=== PATIENT | female | born 1965 | race Caucasian/White ===

== ENCOUNTER 2024-10-09 15:13 | Emergency (ER) | payer OTHER, BC ==
[2024-10-09] MEDS ORDERED: DUONEB 0.5-3 MG/3 ml Neb IH ONE (15:34)
[2024-10-09] MEDS: DUONEB 0.5-3 MG/3 ml Neb IH ONE (15:36)
[2024-10-09 15:45] VITALS: TEMP 97.1
[2024-10-09] MEDS ORDERED: Sterile H2O 10 ml IJ ONE (15:46)
[2024-10-09] MEDS ORDERED: solu-MEDROL ONE (15:46)
--- NOTE | 2024-10-09 15:51 | ERPHSYRPT ---
- History of Present Illness Time Seen by Provider: 10/09/24 15:16 Source: patient Exam Limitations: no limitations Patient Subjective Stated Complaint: shortness of breath COPD Exacerbation Triage Nursing Assessment: patient is alert and oriented, pale, difficulty breathing, has had trouble breathing doctor put her on augmentin and prednison, but she's still getting worse. no edema noted lung sounds course. pulses equal bilateral radius Physician History: 59 years old female with history of tobacco use, COPD with chronic respiratory failure but uses oxygen only at nighttime as needed presented in the ER with 1 week history of increasing shortness of breath and wheezing despite using her inhaler and nebulizer. Patient was seen outpatient and taking Augmentin/prednisone with no significant relief and it seems like it is actually getting worse. Patient denies any fever or chills. She has been using oxygen during the daytime as well but still feels short of breath. Patient has a saturation of 88% on presentation and in the ER on room air, placed on 3 L oxygen and improved in mid 90s. Patient denies any history of coronary artery disease, PE/DVTs. Reports having similar symptoms multiple times with COPD flareup. Allergies/Adverse Reactions: No Known Drug Allergies Allergy (Verified 10/09/24 15:52) Hx Tetanus, Diphtheria Vaccination/Date Given: Yes Hx Influenza Vaccination/Date Given: Yes Hx Pneumococcal Vaccination/Date Given: No Immunizations Up to Date: Yes Travel Risk - International Travel Have you traveled outside of the country in past 3 weeks: No - Emerging Infectious Disease Are you exhibiting symptoms associated with any current EIDs: No - Review of Systems Constitutional: Fatigue Eyes: No Symptoms Ears, Nose, & Throat: No Symptoms Respiratory: Cough, Dyspnea, Dyspnea on Exertion (ARANDA), Wheezing Cardiac: No Symptoms Abdominal/Gastrointestinal: No Symptoms Genitourinary Symptoms: No Symptoms Musculoskeletal: No Symptoms Skin: No Symptoms Neurological: No Symptoms Endocrine: No Symptoms Hematologic/Lymphatic: No Symptoms Immunological/Allergic: No Symptoms - Past Medical History Pertinent Past Medical History: Yes Cardiac History: No Pertinent History Respiratory History: COPD Musculoskeletal History: No Pertinent History GI Medical History: No Pertinent History History: No Pertinent History Psycho-Social History: No Pertinent History Female Reproductive Disorders: No Pertinent History - Past Surgical History Past Surgical History: Yes Gastrointestinal: Cholecystectomy Musculoskeletal: Other Female Surgical History: Hysterectomy Other Surgical History: carpel tunnel - Social History Smoking Status: Current every day smoker Drug Use: none - Social Determinants of Health Will the patient participate in the screening: Yes Do you worry about a steady place to live?: Yes Do you have any problems with any of the following?: No known problems In the past 12 months,have you had to go without utilities?: No Transportation Issues: No Has anyone in your support network made you feel unsafe?: No Have you or anyone in your house had to go w/o enough food: No - Nursing Vital Signs Nursing Vital Signs: Initial Vital Signs Temperature 97.1 F 10/09/24 15:31 Pulse Rate 109 H 10/09/24 15:31 Respiratory Rate 26 H 10/09/24 15:31 Blood Pressure 194/74 10/09/24 15:31 O2 Sat by Pulse Oximetry 99 10/09/24 15:31 Pain Scale Pain Intensity 0 - Physical Exam General Appearance: mild distress, alert Eye Exam: PERRL/EOMI Ears, Nose, Throat Exam: hearing grossly normal, normal ENT inspection Neck Exam: normal inspection, non-tender, supple, full range of motion Respiratory Exam: diminished breath sounds, accessory muscle use, wheezing Cardiovascular/Chest Exam: normal heart sounds, tachycardia Abdominal/Gastrointestinal Exam: soft, normal bowel sounds, No tenderness Extremity Exam: non-tender, normal range of motion Neurologic Exam: alert, oriented x 3, cooperative, video games storywriter II-XII nml as tested Skin Exam: normal color SpO2 Interpretation: hypoxic SpO2: 88 O2 Delivery: Nasal Cannula (3 L) - Course EKG Interpreted by Me: RATE ([id number]), Sinus Tach, Left [place] Deviation, Non-specific ST Changes Ordered Tests: Active Orders 24 hr Category Date Time Status Design Tech STAT Care 10/09/24 15:38 Completed EKG-ER Only STAT Care 10/09/24 15:38 Completed IV Insertion STAT Care 10/09/24 15:38 Completed Oxygen-ED Only Nasal Cannula 3 lpm Care 10/09/24 15:38 Completed CHEST 1 VIEW (PORTABLE) Stat Exams 10/09/24 15:38 Completed BLOOD CULTURE Stat Lab 10/09/24 16:32 Received CBC W DIFF Stat Lab 10/09/24 16:30 Completed CMP Stat Lab 10/09/24 16:30 Completed Lactic Acid Stat Lab 10/09/24 16:02 Completed MAGNESIUM Stat Lab 10/09/24 16:30 Completed NT PRO BNPII Stat Lab 10/09/24 16:30 Completed TROPONIN Q4H Lab 10/09/24 16:30 Completed Medication Summary Discontinued Medications Generic Name Dose Route Start Last Admin Trade Name Karlee PRN Reason Stop Dose Admin Albuterol/Ipratropium 3 ml 10/09/24 15:35 10/09/24 15:36 Ipratropium/Albuterol Sulfate 3 Ml Ampul.Neb IH 10/09/24 15:36 3 ml STAT ONE Administration Albuterol/Ipratropium Confirm 10/09/24 15:34 Ipratropium/Albuterol Sulfate 3 Ml Ampul.Neb Administered 10/09/24 15:35 Dose 3 ml IH .STK-MED ONE Methylprednisolone Sodium 0 mg 10/09/24 15:38 10/09/24 15:52 Succinate 125 mg/ Sterile IV 10/09/24 15:39 125 mg Water 2 ml STAT ONE Administration Ceftriaxone Sodium 2 gm in 100 mls @ 200 mls/hr 10/09/24 17:13 10/09/24 17:51 Rocephin 2 Gm/100 Ml Nacl IV 10/09/24 17:42 Infused STAT ONE Infusion Ceftriaxone Sodium Confirm 10/09/24 17:17 Rocephin 2 Gm/100 Ml Nacl Administered 10/09/24 17:18 Dose 2 gm in 100 mls @ ud IV .STK-MED ONE Methylprednisolone Sodium Succinate Confirm 10/09/24 15:46 Methylprednis Sod Succ 125 Mg/2 Ml Vial Administered 10/09/24 15:47 Dose 125 mg .ROUTE .STK-MED ONE Sterile Water Confirm 10/09/24 15:46 Water For Injection,Sterile 10 Ml Vial Administered 10/09/24 15:47 Dose 10 ml IJ .STK-MED ONE Lab/Rad Data: Laboratory Result Diagrams 10/09/24 16:30 10/09/24 16:30 Laboratory Results 10/09/24 10/09/24 10/09/24 Range/Units 16:30 16:30 16:30 WBC 12.3 H (3.98-10.04) x10^3/uL RBC 5.40 H (3.93-5.22) x10^6/uL Hgb 14.8 (11.2-15.7) g/dL Hct 46.7 H (34.1-44.9) % MCV 86.5 (79.4-94.8) fL MCH 27.4 (25.6-32.2) pg MCHC 31.7 L (32.2-35.5) g/dL RDW 13.9 (11.7-14.4) % Plt Count 376 H (182-369) x10^3/uL MPV 9.2 L (9.4-12.3) fL Gran % 80.2 H (34.0-71.1) % Immature Gran % (Auto) 0.7 H (0.001-0.429) % Nucleat RBC Rel Count 0.0 (0.00-0.2) % Eos # (Auto) 0.01 L (0.04-0.36) x10^3/uL Immature Gran # (Auto) 0.09 H (0.001-0.031) x10^3u/L Absolute Lymphs (auto) 1.20 (1.18-3.74) x10^3/uL Absolute Monos (auto) 1.04 H (0.24-0.86) x10^3/uL Absolute Nucleated RBC 0.00 (0.00-0.012) x10^3u/L Lymphocytes % 9.8 L (19.3-51.7) % Monocytes % 8.5 (4.7-12.5) % Eosinophils % 0.1 L (0.7-5.8) % Basophils % 0.7 (0.1-1.2) % Absolute Granulocytes 9.87 H (1.56-6.13) x10^3/uL Basophils # 0.09 H (0.01-0.08) x10^3/uL Sodium 139 (135-145) mmol/L Potassium 3.7 (3.5-5.1) mmol/L Chloride 94 L (98-107) mmol/L Carbon Dioxide 36 H (22-30) mmol/L Anion Gap 13.6 (5-15) MEQ/L BUN 18 H (7-17) mg/dL Creatinine 0.83 (0.52-1.04) mg/dL Estimated GFR 80.7 ML/MIN Glucose 113 H (74-106) mg/dL Lactic Acid (0.4-2.0) Calcium 9.2 (8.4-10.2) mg/dL Magnesium 2.3 (1.6-2.3) mg/dL Total Bilirubin 0.40 (0.2-1.3) mg/dL AST 29 (14-36) U/L ALT 24 (0-35) U/L Alkaline Phosphatase 68 (38-126) U/L Troponin I < 0.012 (0.000-0.033) ng/mL NT-Pro-B Natriuret Pep 74.8 (<300) pg/mL Serum Total Protein 7.2 (6.3-8.2) g/dL Albumin 4.5 (3.5-5.0) g/dL 10/09/24 Range/Units 16:02 WBC (3.98-10.04) x10^3/uL RBC (3.93-5.22) x10^6/uL Hgb (11.2-15.7) g/dL Hct (34.1-44.9) % MCV (79.4-94.8) fL MCH (25.6-32.2) pg MCHC (32.2-35.5) g/dL RDW (11.7-14.4) % Plt Count (182-369) x10^3/uL MPV (9.4-12.3) fL Gran % (34.0-71.1) % Immature Gran % (Auto) (0.001-0.429) % Nucleat RBC Rel Count (0.00-0.2) % Eos # (Auto) (0.04-0.36) x10^3/uL Immature Gran # (Auto) (0.001-0.031) x10^3u/L Absolute Lymphs (auto) (1.18-3.74) x10^3/uL Absolute Monos (auto) (0.24-0.86) x10^3/uL Absolute Nucleated RBC (0.00-0.012) x10^3u/L Lymphocytes % (19.3-51.7) % Monocytes % (4.7-12.5) % Eosinophils % (0.7-5.8) % Basophils % (0.1-1.2) % Absolute Granulocytes (1.56-6.13) x10^3/uL Basophils # (0.01-0.08) x10^3/uL Sodium (135-145) mmol/L Potassium (3.5-5.1) mmol/L Chloride (98-107) mmol/L Carbon Dioxide (22-30) mmol/L Anion Gap (5-15) MEQ/L BUN (7-17) mg/dL Creatinine (0.52-1.04) mg/dL Estimated GFR ML/MIN Glucose (74-106) mg/dL Lactic Acid 1.0 (0.4-2.0) Calcium (8.4-10.2) mg/dL Magnesium (1.6-2.3) mg/dL Total Bilirubin (0.2-1.3) mg/dL AST (14-36) U/L ALT (0-35) U/L Alkaline Phosphatase (38-126) U/L Troponin I (0.000-0.033) ng/mL NT-Pro-B Natriuret Pep (<300) pg/mL Serum Total Protein (6.3-8.2) g/dL Albumin (3.5-5.0) g/dL - Progress Progress: improved, re-examined Air Movement: good Progress Note: 10/09/24 17:26 59 years old is evaluated in the ER for increasing shortness of breath and wheezing despite taking Augmentin and steroids/neb treatments. Patient was in mild distress on presentation, she was mildly hypoxic 88% on room air, initially placed on 3 L and gradually weaned down to 2 L and saturation in low to mid 90s. She is given neb treatment along with Solu-Medrol, feeling better on reevaluation. Chest x-ray did not show any new cardiopulmonary findings but chronic changes of COPD interpreted by me followed by official read. Has normal white count, chemistries fairly unremarkable with negative troponins. EKG showed sinus tach with no ST elevation. Patient tachycardia is also improved on reevaluation. Patient is offered/recommended observation admission for COPD exacerbation but she does not want to stay in the hospital at all. Patient states "there is absolutely no way for me to stay in the hospital as I have to take care of dogs, will come back if does not feel better tomorrow.". She is not confused or altered at all. She has oxygen at home which she is advised to use all the time until her acute phase is over and take frequent neb treatments. Patient blood pressure right before discharge is in 150s and heart rate in 90s. I have given her a dose of Rocephin here and will continue with Levaquin to go home for better and broader coverage. Discussed signs symptoms of worsening needing return to ER which she seems understanding. Patient agrees that if she is worsening will come back but otherwise she would follow-up with PCP and 2 days. Complexity of problems addressed: High acuity Complexity of data reviewed/analyzed: Moderate Risk of complication: Moderate Counseled pt/family regarding: lab results, diagnosis, need for follow-up, rad results, smoking cessation Medical Desision Making - Diagnostic Testing Diagnostic test were ordered, analyzed, and reviewed by me: Yes Radiological Interpretation: Interpreted by me, Reviewed by me - Risk of complications The pt has a mod risk of morbidity or mortality based on: Need for prescription drug management The pt has a high risk of morbidity or mortality based on: Decision regarding hospitilization or escalation of hosp level of care - Departure Departure Disposition: Home Clinical Impression: COPD with acute exacerbation, Respiratory failure Condition: Stable Critical Care Time: No Referrals: RAYMOND GONZALEZ NP [Primary Care Provider, [facility]] - Follow up with PCP 1 day Instructions: Chronic Obstructive Pulmonary Disease Additional Instructions: continue using oxygen 2-3L as recommended, use nebulaizer every 4-6hrs , follow up with PCP for reevaluation, return for worsening of Shortness of breath/wheezing or if having any fever or chills Prescriptions: Levofloxacin [Levaquin 500 MG Tablet] 500 mg PO DAILY #7 tablet Methylprednisolone Packet [Medrol Dosepack] 4 mg PO UD #1 packet
[2024-10-09] MEDS: solu-MEDROL 125 MG, Sterile H2O 10 ml 2 ML IV ONE (15:52)
[2024-10-09 16:44] LABS: Absolute Neutrophil Ct (ANC) 9.87 x10^3/uL (1.56-6.13); BASOPHIL % 0.7 % (0.1-1.2); Basophil (Absolute #) 0.09 x10^3/uL (0.01-0.08); Eosinophil % 0.1 % (0.7-5.8); Eosinophil (Absolute #) 0.01 x10^3/uL (0.04-0.36); Hematocrit 46.7 % (34.1-44.9); Hemoglobin 14.8 g/dL (11.2-15.7); IMMATURE GRAN # 0.09 x10^3u/L (0.001-0.031); IMMATURE GRAN % 0.7 % (0.001-0.429); Lymphocytes % 9.8 % (19.3-51.7); Mean Cell Volume 86.5 fL (79.4-94.8); Mean Corpuscular Hemoglobin 27.4 pg (25.6-32.2); Mean Corpuscular Hgb Concent. 31.7 g/dL (32.2-35.5); Mean Platelet Volume 9.2 fL (9.4-12.3); Monocyte (Absolute #) 1.04 x10^3/uL (0.24-0.86); Monocytes % 8.5 % (4.7-12.5); Neutrophil % 80.2 % (34.0-71.1); Platelet Count 376 x10^3/uL (182-369); Red Cell Distribution Width 13.9 % (11.7-14.4); White Blood Count 12.3 x10^3/uL (3.98-10.04)
[2024-10-09 16:58] LABS: ALBUMIN 4.5 g/dL (3.5-5.0); ANION GAP 13.6 MEQ/L (5-15); BILIRUBIN,TOTAL 0.4 mg/dL (0.2-1.3); Calcium 9.2 mg/dL (8.4-10.2); Creatinine 1 0.83 mg/dL (0.52-1.04); EST GLOMERULAR FILTRATION RATE 80.7 ML/MIN; MAGNESIUM 2.3 mg/dL (1.6-2.3); NT PRO BNPII 74.8 pg/mL (<300); Potassium 3.7 mmol/L (3.5-5.1); Total Protein 7.2 g/dL (6.3-8.2)
--- NOTE | 2024-10-09 17:12 | XRAY ---
Indication: Short of breath. Comparison: March 05, 2024 Portable chest remains clear again with COPD. Heart not enlarged. Bony thorax intact again with osteopenia, degenerative changes, and thoracolumbar junction levorotoscoliosis. No new/acute findings.
[2024-10-09] MEDS ORDERED: ROCEPHIN 2 GM/100 ML NACL 2 GM/100 ML IVPB IV ONE (17:17)
[2024-10-09] MEDS: ROCEPHIN 2 GM/100 ML NACL 2 GM/100 ML IVPB IV ONE (17:19)
[2024-10-09 17:34] VITALS: O2SAT 88
[2024-10-09 18:00] VITALS: BP 145/77; PULSE 78; RESP 18
== END 2024-10-09 18:00 | disposition home or self-care (01) ==
LOC: ED 15:13
DX: J44.1 Chronic obstructive pulmonary disease with (acute) exacerbation (principal); J96.10 Chronic respiratory failure, unspecified whether with hypoxia or hypercapnia; Z79.52 Long term (current) use of systemic steroids; Z79.899 Other long term (current) drug therapy; Z72.0 Tobacco use; Z59.819 Housing instability, housed unspecified
CPT/HCPCS: 36415; 71045; 80053; 83605; 83735; 83880; 84484; 85025; 87040; 93005; 93041; 94640; 96365; 96374; 96375; 99284; 99285; J0696; J2919; A9270-GY